=== PATIENT | male | born 1970 | race Caucasian/White ===

== ENCOUNTER 2023-10-31 13:47 | Inpatient (IN) | payer BC ==
[2023-10-31 15:11] LABS: Troponin I 0.012 ng/mL (< 0.028)
[2023-10-31 15:14] LABS: ALT (SGPT) 63 U/L (8-55); AST (SGOT) 259 U/L (5-34); Albumin 2.6 g/dL (3.5-5.0); Alkaline Phosphatase 233 U/L (40-110); Anion Gap 15 mmol/L (10-20); BUN (Urea Nitrogen) 6 mg/dL (8.4-25.7); Calc. Creatinine Clearance 0 mL/min (70-130); Calcium 8.4 mg/dL (7.8-10.44); Carbon Dioxide 25 mmol/L (22-29); Chloride 93 mmol/L (98-107); Estimated GFR 107; Globulin 5.7 g/dL (2.4-3.5); Glucose 117 mg/dL (70-105); Protein, Total 8.3 g/dL (6.0-8.3); Sodium 130 mmol/L (136-145)
[2023-10-31 15:27] LABS: #Basophils 0.08 10x3/uL (0.0-0.2); %Eosinophils 1.8 % (0.0-10.0); %Lymphocytes 10.9 % (21.0-51.0); %Monocytes 9.3 % (0.0-10.0); %Neutrophils 76.6 % (42.0-75.0); Hematocrit 38.4 % (42.0-52.0); Hemoglobin 13.6 g/dL (14.0-18.0); Mean Corpuscular HGB CONC 35.4 g/dL (32.0-36.0); Mean Corpuscular Hemoglobin 34.8 pg (27.0-31.0); Mean Corpuscular Volume 98.2 fL (78.0-98.0); Mean Platelet Volume 10.5 fL (7.4-10.4); Platelet Count 77 10x3/uL (130-400); RBC Distribution Width 14.5 % (11.5-14.5); Red Blood Cell (RBC) Count 3.91 mill/uL (4.70-6.10)
[2023-10-31 15:39] LABS: Platelet Adequacy Comment Platelets Decreased; Polychromasia SLIGHT = 2-3 cells HPF (0-2); Target Cells SLIGHT = 2-5 cells HPF (0-1); Tear Drops SLIGHT = 2-5 cells HPF (0-1)
[2023-10-31 17:07] LABS: Free T4 (Free Thyroxine) 0.99 ng/dL (0.70-1.48)
[2023-10-31 17:10] LABS: Lipase 54 U/L (8-78); Magnesium 1.1 mg/dL (1.6-2.6)
[2023-10-31 17:11] LABS: Acetaminophen Less than 10 mcg/mL (Less than 10); Alcohol Less than 10.0 mg/dL (Less than 10); Salicylate Less than 8.0 mg/dL (Less than 8.0)
[2023-10-31] MEDS ORDERED: Thiamine HCl 200 MG/2 ML VIAL ONE (17:14)
[2023-10-31] MEDS ORDERED: cloNIDine 0.1 MG TAB ONE (17:57)
[2023-10-31] MEDS ORDERED: Potassium Chloride 20 MEQ TAB ONE (17:58)
[2023-10-31] MEDS ORDERED: Magnesium 2 GM/50 ML BAG (IN WATER) ONE (17:58)
[2023-10-31] MEDS ORDERED: Potassium Chloride 20 MEQ (100 mL) BAG ONE (17:58)
[2023-10-31 18:25] LABS: Amphetamine Not Detected (NotDetected); Barbiturates Screen Not Detected (NotDetected); Benzodiazepine Screen Not Detected (NotDetected); Cocaine Metabolite Screen Not Detected (NotDetected); Methadone Not Detected (NotDetected); Methamphetamine Not Detected (NotDetected); Opiate Screen Not Detected (NotDetected); Oxycodone Screen Not Detected (NotDetected); Phencyclidine (PCP) Not Detected (NotDetected); THC/Cannabinoid Screen Not Detected (NotDetected); Tricyclic Screen Not Detected (NotDetected)
[2023-11-01] MEDS ORDERED: Ondansetron PF 4 MG/2 ML Vial IVP PRN (00:16)
[2023-11-01] MEDS ORDERED: Lorazepam 2 MG/ML VIAL IM PRN (00:18)
[2023-11-01] MEDS ORDERED: Ondansetron ODT 4 MG TAB PO PRN (00:18)
[2023-11-01] MEDS ORDERED: Electrolyte Replacement Protocol 1 EACH FS SCH (00:30)
[2023-11-01] MEDS ORDERED: Lorazepam 1 MG TAB PO PRN (01:00)
[2023-11-01 01:28] LABS: #Basophils 0.07 10x3/uL (0.0-0.2); %Basophils 0.9 % (0.0-1.0); %Eosinophils 3.2 % (0.0-10.0); %Lymphocytes 16.3 % (21.0-51.0); %Monocytes 9.5 % (0.0-10.0); %Neutrophils 69.7 % (42.0-75.0); Hematocrit 35.1 % (42.0-52.0); Hemoglobin 12.5 g/dL (14.0-18.0); Mean Corpuscular HGB CONC 35.6 g/dL (32.0-36.0); Mean Corpuscular Hemoglobin 35.2 pg (27.0-31.0); Mean Corpuscular Volume 98.9 fL (78.0-98.0); Mean Platelet Volume 10.5 fL (7.4-10.4); Platelet Count 69 10x3/uL (130-400); RBC Distribution Width 14.6 % (11.5-14.5); Red Blood Cell (RBC) Count 3.55 mill/uL (4.70-6.10)
[2023-11-01 01:52] LABS: ALT (SGPT) 52 U/L (8-55); AST (SGOT) 205 U/L (5-34); Albumin 2.2 g/dL (3.5-5.0); Alkaline Phosphatase 193 U/L (40-110); Anion Gap 12 mmol/L (10-20); BUN (Urea Nitrogen) 6 mg/dL (8.4-25.7); Bilirubin, Total 15.2 mg/dL (0.2-1.2); Calc. Creatinine Clearance 0 mL/min (70-130); Calcium 7.5 mg/dL (7.8-10.44); Carbon Dioxide 24 mmol/L (22-29); Chloride 99 mmol/L (98-107); Estimated GFR 112; Globulin 4.9 g/dL (2.4-3.5); Glucose 102 mg/dL (70-105); Magnesium 1.6 mg/dL (1.6-2.6); Potassium 3.3 mmol/L (3.5-5.1); Protein, Total 7.1 g/dL (6.0-8.3); Sodium 132 mmol/L (136-145)
[2023-11-01] MEDS: Multivitamins, Adult 10 ML, Thiamine HCl 100 MG, Folic Acid 1 MG in Dextrose 5 %-0.45 %... IV SCH (03:02)
[2023-11-01] MEDS: Thiamine HCl 200 MG/2 ML VIAL SLOW IVP SCH (03:02)
[2023-11-01] MEDS ORDERED: Lorazepam 1 MG TAB ONE ×2 (03:17→09:38)
[2023-11-01] MEDS: Sodium Chloride 0.9% 1,000 ML IV SCH (03:29)
[2023-11-01] MEDS: Lorazepam 1 MG TAB PO SCH (03:30)
[2023-11-01] MEDS: PHOS-NAK 1 PKT PACK PO SCH ×2 (03:30→10:05)
[2023-11-01] MEDS: Potassium Chloride 20 MEQ TAB PO SCH ×2 (04:30→14:46)
[2023-11-01] MEDS: Magnesium 2 GM/50 ML(in water) 2 GM in Premix 1 BAG IVPB SCH (04:30)
[2023-11-01] MEDS ORDERED: Potassium Chloride 20 MEQ (100 mL) BAG ONE (04:36)
[2023-11-01] MEDS ORDERED: Magnesium 2 GM/50 ML BAG (IN WATER) ONE (04:36)
[2023-11-01] MEDS ORDERED: Potassium Chloride 20 MEQ TAB ONE (05:53)
[2023-11-01] MEDS ORDERED: Folic Acid 1 MG TAB ONE (09:37)
[2023-11-01] MEDS ORDERED: Multivit, Therapeutic 1 TAB ONE (09:38)
[2023-11-01] MEDS ORDERED: Famotidine/PF 20 mg/2ml Vial ONE (09:41)
[2023-11-01] MEDS: Multivit, Therapeutic 1 TAB PO SCH (09:48)
[2023-11-01] MEDS: Folic Acid 1 MG TAB PO SCH (09:48)
[2023-11-01] MEDS: Famotidine/PF 20 mg/2ml Vial SLOW IVP SCH (09:48)
[2023-11-01 09:57] LABS: #Basophils 0.09 10x3/uL (0.0-0.2); %Basophils 1.3 % (0.0-1.0); %Eosinophils 3.2 % (0.0-10.0); %Lymphocytes 17.4 % (21.0-51.0); %Monocytes 10.4 % (0.0-10.0); %Neutrophils 67.3 % (42.0-75.0); Hematocrit 36.8 % (42.0-52.0); Hemoglobin 12.8 g/dL (14.0-18.0); Mean Corpuscular HGB CONC 34.8 g/dL (32.0-36.0); Mean Corpuscular Hemoglobin 35.7 pg (27.0-31.0); Mean Corpuscular Volume 102.5 fL (78.0-98.0); Mean Platelet Volume 10.9 fL (7.4-10.4); Platelet Count 75 10x3/uL (130-400); RBC Distribution Width 15.1 % (11.5-14.5); Red Blood Cell (RBC) Count 3.59 mill/uL (4.70-6.10)
[2023-11-01 10:02] LABS: Potassium 3.5 mmol/L (3.5-5.1)
[2023-11-01 10:07] LABS: INR-International Normal Ratio 1.6; Prothrombin Time 19.5 sec (12.0-14.7)
[2023-11-01 10:08] LABS: ALT (SGPT) 48 U/L (8-55); AST (SGOT) 192 U/L (5-34); Albumin 2.2 g/dL (3.5-5.0); Alkaline Phosphatase 193 U/L (40-110); Anion Gap 14 mmol/L (10-20); BUN (Urea Nitrogen) 8 mg/dL (8.4-25.7); Bilirubin, Total 15.5 mg/dL (0.2-1.2); Calc. Creatinine Clearance 156 mL/min (70-130); Calcium 7.4 mg/dL (7.8-10.44); Carbon Dioxide 20 mmol/L (22-29); Chloride 102 mmol/L (98-107); Estimated GFR 106; Globulin 4.7 g/dL (2.4-3.5); Glucose 78 mg/dL (70-105); Potassium 3.6 mmol/L (3.5-5.1); Protein, Total 6.9 g/dL (6.0-8.3); Sodium 132 mmol/L (136-145)
[2023-11-01 13:33] LABS: Potassium 3.5 mmol/L (3.5-5.1)
[2023-11-01 19:16] VITALS: BMI 33.2
[2023-11-02] MEDS ORDERED: Lorazepam 1 MG TAB PO PRN (01:00)
[2023-11-02 05:07] LABS: Iron 97 ug/dL (65-175); Iron Binding Capacity, Total 98 mcg/dL (261-462)
[2023-11-02 05:48] LABS: HBCM Index 0.16 S/CO (0-0.79); HBsAg Index 0.27 S/CO (0-0.99); Hep A IgM AB NONREACTIVE (NonReactive); Hep A IgM S/CO 0.23 S/CO (0-0.79); Hep B Surf Ag NONREACTIVE S/CO (NonReactive); Hep C IgG Ab NONREACTIVE S/CO (NonReactive); Hep C Index 0.08 S/CO (0-0.79); Hepatitis B Core IgM Abs NONREACTIVE S/CO (NonReactive)
[2023-11-02 07:03] LABS: Ferritin 2126.73 ng/mL (22-322)
[2023-11-02] MEDS ORDERED: PROPOFOL 40 ML ONE (08:38)
[2023-11-02] MEDS ORDERED: Lidocaine 2% PF 5 ML VIAL ONE (08:42)
[2023-11-02] MEDS: Lactulose 20 GM (30 mL) UDCUP PO SCH ×2 (09:49→20:59)
[2023-11-02] MEDS: prednisoLONE 10 MG ODT TAB PO SCH (10:21)
[2023-11-02 10:25] LABS: #Basophils 0.07 10x3/uL (0.0-0.2); %Basophils 1.1 % (0.0-1.0); %Eosinophils 2.3 % (0.0-10.0); %Lymphocytes 13.3 % (21.0-51.0); %Monocytes 10.2 % (0.0-10.0); %Neutrophils 72.5 % (42.0-75.0); Hematocrit 38.5 % (42.0-52.0); Hemoglobin 13.1 g/dL (14.0-18.0); Mean Corpuscular Hemoglobin 35.1 pg (27.0-31.0); Mean Corpuscular Volume 103.2 fL (78.0-98.0); Mean Platelet Volume 10.4 fL (7.4-10.4); Platelet Count 90 10x3/uL (130-400); RBC Distribution Width 16.1 % (11.5-14.5); Red Blood Cell (RBC) Count 3.73 mill/uL (4.70-6.10)
[2023-11-02 10:28] LABS: ALT (SGPT) 48 U/L (8-55); AST (SGOT) 174 U/L (5-34); Albumin 2.3 g/dL (3.5-5.0); Alkaline Phosphatase 212 U/L (40-110); Anion Gap 12 mmol/L (10-20); BUN (Urea Nitrogen) 9 mg/dL (8.4-25.7); Bilirubin, Total 17.3 mg/dL (0.2-1.2); Calc. Creatinine Clearance 157 mL/min (70-130); Calcium 7.6 mg/dL (7.8-10.44); Carbon Dioxide 22 mmol/L (22-29); Chloride 104 mmol/L (98-107); Estimated GFR 103; Globulin 5.2 g/dL (2.4-3.5); Glucose 80 mg/dL (70-105); Potassium 3.6 mmol/L (3.5-5.1); Protein, Total 7.5 g/dL (6.0-8.3); Sodium 134 mmol/L (136-145)
[2023-11-02 10:30] LABS: INR-International Normal Ratio 1.5; Prothrombin Time 18.1 sec (12.0-14.7)
[2023-11-02] MEDS: Sodium Chloride 0.9% 1,000 ML IV SCH (17:51)
[2023-11-02] MEDS: K-Phos Neutral 250 MG TAB PO SCH (17:51)
[2023-11-03] MEDS ORDERED: Lorazepam 1 MG TAB PO PRN (01:00)
[2023-11-03] MEDS: Lorazepam 0.5 MG TAB PO SCH (02:55)
[2023-11-03 06:25] LABS: ALT (SGPT) 41 U/L (8-55); AST (SGOT) 135 U/L (5-34); Alkaline Phosphatase 185 U/L (40-110); Anion Gap 10 mmol/L (10-20); BUN (Urea Nitrogen) 11 mg/dL (8.4-25.7); Bilirubin, Total 14.7 mg/dL (0.2-1.2); Calc. Creatinine Clearance 159 mL/min (70-130); Calcium 7.6 mg/dL (7.8-10.44); Carbon Dioxide 22 mmol/L (22-29); Chloride 109 mmol/L (98-107); Estimated GFR 103; Globulin 4.7 g/dL (2.4-3.5); Glucose 95 mg/dL (70-105); Magnesium 1.8 mg/dL (1.6-2.6); Phosphorus 1.5 mg/dL (2.3-4.7); Potassium 3.6 mmol/L (3.5-5.1); Protein, Total 6.7 g/dL (6.0-8.3); Sodium 137 mmol/L (136-145)
[2023-11-03 06:41] LABS: #Basophils 0.06 10x3/uL (0.0-0.2); %Basophils 0.7 % (0.0-1.0); %Eosinophils 1.3 % (0.0-10.0); %Lymphocytes 13.3 % (21.0-51.0); %Neutrophils 73.3 % (42.0-75.0); Hematocrit 33.2 % (42.0-52.0); Hemoglobin 11.6 g/dL (14.0-18.0); Mean Corpuscular HGB CONC 34.9 g/dL (32.0-36.0); Mean Corpuscular Hemoglobin 34.5 pg (27.0-31.0); Mean Corpuscular Volume 98.8 fL (78.0-98.0); Mean Platelet Volume 10.6 fL (7.4-10.4); Platelet Count 107 10x3/uL (130-400); RBC Distribution Width 16.6 % (11.5-14.5); Red Blood Cell (RBC) Count 3.36 mill/uL (4.70-6.10)
[2023-11-03] MEDS: PHOS-NAK 1 PKT PACK PO SCH (09:43)
[2023-11-03] MEDS: Magnesium 2 GM/50 ML(in water) 2 GM in Premix 1 BAG IVPB SCH (09:45)
[2023-11-03] MEDS: Rifaximin 550 MG TAB PO SCH (19:57)
[2023-11-04] MEDS ORDERED: Lorazepam 0.5 MG TAB PO PRN (01:00)
[2023-11-04] MEDS: Thiamine 100 MG TAB PO SCH (01:30)
[2023-11-04 05:16] LABS: ALT (SGPT) 41 U/L (8-55); AST (SGOT) 120 U/L (5-34); Alkaline Phosphatase 185 U/L (40-110); Anion Gap 13 mmol/L (10-20); BUN (Urea Nitrogen) 8 mg/dL (8.4-25.7); Bilirubin, Total 14.6 mg/dL (0.2-1.2); Calc. Creatinine Clearance 189 mL/min (70-130); Calcium 7.5 mg/dL (7.8-10.44); Carbon Dioxide 19 mmol/L (22-29); Chloride 107 mmol/L (98-107); Estimated GFR 109; Globulin 4.7 g/dL (2.4-3.5); Glucose 110 mg/dL (70-105); Magnesium 1.9 mg/dL (1.6-2.6); Phosphorus 2.8 mg/dL (2.3-4.7); Protein, Total 6.7 g/dL (6.0-8.3); Sodium 135 mmol/L (136-145)
[2023-11-04] MEDS: Magnesium 2 GM/50 ML(in water) 2 GM in Premix 1 BAG IVPB SCH (05:48)
[2023-11-05 06:10] LABS: INR-International Normal Ratio 1.5; Prothrombin Time 18.1 sec (12.0-14.7)
[2023-11-05 06:21] LABS: ALT (SGPT) 46 U/L (8-55); AST (SGOT) 113 U/L (5-34); Alkaline Phosphatase 195 U/L (40-110); Anion Gap 12 mmol/L (10-20); BUN (Urea Nitrogen) 8 mg/dL (8.4-25.7); Bilirubin, Total 14.6 mg/dL (0.2-1.2); Calc. Creatinine Clearance 194 mL/min (70-130); Calcium 7.8 mg/dL (7.8-10.44); Carbon Dioxide 23 mmol/L (22-29); Chloride 104 mmol/L (98-107); Estimated GFR 110; Glucose 88 mg/dL (70-105); Potassium 3.7 mmol/L (3.5-5.1); Sodium 135 mmol/L (136-145)
[2023-11-05 06:33] LABS: Hematocrit 36.9 % (42.0-52.0); Mean Corpuscular HGB CONC 35.2 g/dL (32.0-36.0); Mean Corpuscular Hemoglobin 34.4 pg (27.0-31.0); Mean Corpuscular Volume 97.6 fL (78.0-98.0); Platelet Count 134 10x3/uL (130-400); RBC Distribution Width 17.1 % (11.5-14.5); Red Blood Cell (RBC) Count 3.78 mill/uL (4.70-6.10)
[2023-11-05] MEDS: Spironolactone 25 MG TAB PO SCH ×2 (09:42→16:24)
[2023-11-05] MEDS: prednisoLONE 15 MG/5 ML UDCUP PO SCH (09:43)
[2023-11-06 07:35] LABS: #Basophils 0.08 10x3/uL (0.0-0.2); %Basophils 0.8 % (0.0-1.0); %Eosinophils 2.5 % (0.0-10.0); %Lymphocytes 19.5 % (21.0-51.0); %Monocytes 15.2 % (0.0-10.0); %Neutrophils 60.9 % (42.0-75.0); Hematocrit 35.2 % (42.0-52.0); Hemoglobin 12.8 g/dL (14.0-18.0); Mean Corpuscular HGB CONC 36.4 g/dL (32.0-36.0); Mean Corpuscular Hemoglobin 35.3 pg (27.0-31.0); Mean Platelet Volume 10.7 fL (7.4-10.4); Platelet Count 154 10x3/uL (130-400); RBC Distribution Width 17.2 % (11.5-14.5); Red Blood Cell (RBC) Count 3.63 mill/uL (4.70-6.10)
[2023-11-06 07:58] LABS: ALT (SGPT) 49 U/L (8-55); AST (SGOT) 113 U/L (5-34); Albumin 1.9 g/dL (3.5-5.0); Alkaline Phosphatase 177 U/L (40-110); Anion Gap 11 mmol/L (10-20); BUN (Urea Nitrogen) 10 mg/dL (8.4-25.7); Bilirubin, Total 15.5 mg/dL (0.2-1.2); Calc. Creatinine Clearance 160 mL/min (70-130); Calcium 7.9 mg/dL (7.8-10.44); Carbon Dioxide 23 mmol/L (22-29); Chloride 102 mmol/L (98-107); Estimated GFR 104; Globulin 4.9 g/dL (2.4-3.5); Glucose 77 mg/dL (70-105); Potassium 3.5 mmol/L (3.5-5.1); Protein, Total 6.8 g/dL (6.0-8.3); Sodium 132 mmol/L (136-145)
[2023-11-06] MEDS: Spironolactone 25 MG TAB PO SCH (09:13)
[2023-11-06] MEDS: Potassium Chloride 20 MEQ TAB PO SCH (11:25)
[2023-11-07 07:38] VITALS: TEMP 98.2
[2023-11-07 17:01] VITALS: BP 143/94
== END 2023-11-07 19:05 | disposition home or self-care (01) | DRG 433 ==
LOC: ERS 13:47 → ERHOLD 11-01 00:16 → 2SW 11-01 11:49 → OBSVTOIN 11-02 16:47 → T4-A 11-04 16:54
PROVIDERS: ADMIT Hospitalist; ATTEND Hospitalist
PROC: 0DJ08ZZ Inspection of Upper Intestinal Tract, Via Natural or Artificial Opening Endoscopic (ICD-10-PCS; principal; 2023-11-02)
DX: K70.31 Alcoholic cirrhosis of liver with ascites (principal); E87.1 Hypo-osmolality and hyponatremia; K76.6 Portal hypertension; K70.11 Alcoholic hepatitis with ascites; K76.82 Hepatic encephalopathy; F10.10 Alcohol abuse, uncomplicated; G47.33 Obstructive sleep apnea (adult) (pediatric); I10 Essential (primary) hypertension; K76.89 Other specified diseases of liver; E80.6 Other disorders of bilirubin metabolism; E87.8 Other disorders of electrolyte and fluid balance, not elsewhere classified; E87.6 Hypokalemia; M16.12 Unilateral primary osteoarthritis, left hip; K31.89 Other diseases of stomach and duodenum; Z71.41 Alcohol abuse counseling and surveillance of alcoholic; E83.39 Other disorders of phosphorus metabolism
CPT/HCPCS: 36415; 71045; 74181; 76376; 76705; 80053; 80074; 80306; 80307; 81256; 82105; 82140; 82248; 82728; 83540; 83550; 83605; 83690; 83735; 83880; 84100; 84439; 84443; 84481; 84484; 85025; 85027; 85610; 93005; 96374; 96375; 96376; G0378; J2001; J2704; J3411; J3475; J3480; J3490; J7030; J7042; J7510